=== PATIENT | female | born 1995 | race Hispanic/Latino ===

== ENCOUNTER 2017-09-08 12:10 | Emergency (ER) | payer MEDICAID, OTHER ==
[2017-09-08] MEDS ORDERED: DICYCLOMINE HCL 20 MG TAB ONE (12:39)
[2017-09-08] MEDS ORDERED: ONDANSETRON ODT 4 MG TAB ONE (12:39)
[2017-09-08 13:02] LABS: APPEARANCE,URINE CLEAR (CLEAR); BILIRUBIN,URINE NEGATIVE (NEGATIVE); COLOR,URINE YELLOW (YELLOW); GLUCOSE, URINE (UA) NEGATIVE (NEGATIVE); KETONES,URINE 15 mg/dL (NEGATIVE); LEUKOCYTE ESTERASE ,URINE SMALL (NEGATIVE); NITRATE,URINE NEGATIVE (NEGATIVE); OCCULT BLOOD,URINE TRACE-INTACT (NEGATIVE); PROTEIN,URINE NEGATIVE (NEGATIVE); UROBILINOGEN,URINE 0.2 mg/dL (0.2-1.0)
[2017-09-08 13:07] LABS: HCG,QUAL RESULT POSITIVE (NEGATIVE)
[2017-09-08 13:22] LABS: BACTERIA,URINE Rare /HPF (None Seen); RBC,URINE 0-1 /HPF (0-1); SQUAMOUS EPITHELIAL CELL,UR Few /LPF (0-2)
[2017-09-08 13:23] LABS: WBC,URINE 0-1 /HPF (0-1)
== END 2017-09-08 15:03 | disposition left against medical advice (07) ==
LOC: EDH 12:10
DX: O26.891 Other specified pregnancy related conditions, first trimester (principal); R11.2 Nausea with vomiting, unspecified; R19.7 Diarrhea, unspecified; J45.909 Unspecified asthma, uncomplicated; Z53.21 Procedure and treatment not carried out due to patient leaving prior to being seen by health care provider; Z3A.11 11 weeks gestation of pregnancy; Z88.0 Allergy status to penicillin; Z90.49 Acquired absence of other specified parts of digestive tract
CPT/HCPCS: 81001; 81025; 82270; 87046; 87177; 87205

== ENCOUNTER 2017-09-10 14:32 | Emergency (ER) | payer MEDICAID ==
[2017-09-10 15:45] LABS: BASOPHILS % (AUTO) 0.7 % (0.0-5.0); EOSINOPHILS % (AUTO) 0.6 % (0.0-8.0); HEMATOCRIT 36.9 % (36-48); LYMPHOCYTES % (AUTO) 34.2 % (21.0-51.0); MEAN CORPUSCULAR HEMOGLOBIN 32.7 pg (27.0-33.0); MEAN CORPUSCULAR HGB CONC 35.5 g/dL (32.0-36.0); MEAN CORPUSCULAR VOLUME 92.2 fL (79-99); MONOCYTES % (AUTO) 8.9 % (3.0-13.0); NEUTROPHILS % (AUTO) 55.6 % (40.0-77.0); PLATELET COUNT (AUTO) 257 K/uL (130-400); RED CELL DISTRIBUTION WIDTH 12.9 % (11.0-15.5); WHITE BLOOD COUNT (AUTO) 7.1 K/uL (4.8-10.8)
[2017-09-10] MEDS ORDERED: SODIUM CHLORIDE 0.9% 1000ML 1,000 ML IV ONE (15:52)
[2017-09-10] MEDS ORDERED: ONDANSETRON HCL 4 MG/2 ML VIAL ONE (15:52)
[2017-09-10 16:31] LABS: CREATININE 0.6 mg/dL (0.5-1.5); POTASSIUM 3.6 mmol/L (3.5-5.1)
== END 2017-09-10 16:49 | disposition home or self-care (01) ==
LOC: EDH 14:32
DX: O26.891 Other specified pregnancy related conditions, first trimester (principal); E86.0 Dehydration; J45.909 Unspecified asthma, uncomplicated; Z3A.12 12 weeks gestation of pregnancy; Z88.0 Allergy status to penicillin
CPT/HCPCS: 36415; 80048; 85025; 96361; 96374; 99284; J2405; J7030

== ENCOUNTER 2017-09-22 23:03 | Emergency (ER) | payer MEDICAID ==
[2017-09-23 00:29] LABS: APPEARANCE,URINE Cloudy (CLEAR); BILIRUBIN,URINE Negative (NEGATIVE); COLOR,URINE Yellow (YELLOW); GLUCOSE, URINE (UA) Negative (NEGATIVE); KETONES,URINE Negative (NEGATIVE); LEUKOCYTE ESTERASE ,URINE Moderate (NEGATIVE); NITRATE,URINE Negative (NEGATIVE); OCCULT BLOOD,URINE Large (NEGATIVE); PH,URINE 7.5 (5.0-8.0); PROTEIN,URINE Negative (NEGATIVE)
[2017-09-23 00:40] LABS: BACTERIA,URINE Moderate /HPF (None Seen); MUCUS,URINE Moderate LPF (None Seen); SQUAMOUS EPITHELIAL CELL,UR Moderate /LPF (0-2)
[2017-09-23 01:55] LABS: BASOPHILS % (AUTO) 0.5 % (0.0-5.0); EOSINOPHILS % (AUTO) 1.9 % (0.0-8.0); HEMATOCRIT 35.2 % (36-48); LYMPHOCYTES % (AUTO) 36.7 % (21.0-51.0); MEAN CORPUSCULAR HEMOGLOBIN 33.1 pg (27.0-33.0); MEAN CORPUSCULAR HGB CONC 35.1 g/dL (32.0-36.0); MEAN CORPUSCULAR VOLUME 94.4 fL (79-99); MONOCYTES % (AUTO) 8.3 % (3.0-13.0); NEUTROPHILS % (AUTO) 52.6 % (40.0-77.0); PLATELET COUNT (AUTO) 213 K/uL (130-400); RED BLOOD CELL COUNT(AUTO) 3.72 MIL/uL (4.00-5.50); RED CELL DISTRIBUTION WIDTH 13.4 % (11.0-15.5); WHITE BLOOD COUNT (AUTO) 7.8 K/uL (4.8-10.8)
[2017-09-23 02:13] LABS: CREATININE 0.6 mg/dL (0.5-1.5); POTASSIUM 3.8 mmol/L (3.5-5.1)
== END 2017-09-23 03:19 | disposition home or self-care (01) ==
LOC: EDH 23:03
DX: O20.0 Threatened abortion (principal); J45.909 Unspecified asthma, uncomplicated; Z3A.16 16 weeks gestation of pregnancy; Z88.0 Allergy status to penicillin
CPT/HCPCS: 36415; 76801; 80048; 81001; 84702; 85025

== ENCOUNTER 2017-09-30 07:58 | Emergency (ER) | payer MEDICAID ==
[2017-09-30 09:17] LABS: BASOPHILS % (AUTO) 0.9 % (0.0-5.0); EOSINOPHILS % (AUTO) 1.1 % (0.0-8.0); HEMATOCRIT 34.1 % (36-48); MEAN CORPUSCULAR HEMOGLOBIN 32.8 pg (27.0-33.0); MEAN CORPUSCULAR HGB CONC 35.6 g/dL (32.0-36.0); MEAN CORPUSCULAR VOLUME 92.4 fL (79-99); MONOCYTES % (AUTO) 8.7 % (3.0-13.0); NEUTROPHILS % (AUTO) 45.3 % (40.0-77.0); NUCLEATED RED BLOOD CELLS 0.1 % (0.0-0.19); PLATELET COUNT (AUTO) 269 K/uL (130-400); RED BLOOD CELL COUNT(AUTO) 3.69 MIL/uL (4.00-5.50); WHITE BLOOD COUNT (AUTO) 5.7 K/uL (4.8-10.8)
[2017-09-30 09:23] LABS: APPEARANCE,URINE Clear (CLEAR); BILIRUBIN,URINE Negative (NEGATIVE); COLOR,URINE Yellow (YELLOW); GLUCOSE, URINE (UA) Negative (NEGATIVE); KETONES,URINE Trace mg/dL (NEGATIVE); LEUKOCYTE ESTERASE ,URINE Small (NEGATIVE); NITRATE,URINE Negative (NEGATIVE); OCCULT BLOOD,URINE Large (NEGATIVE); PROTEIN,URINE Negative (NEGATIVE)
[2017-09-30 09:23] LABS: CREATININE 0.7 mg/dL (0.5-1.5); POTASSIUM 3.5 mmol/L (3.5-5.1)
[2017-09-30 09:28] LABS: INR 1.06 (0.85-1.15); PARTIAL THROMBOPLASTIN TIME 35.5 SEC (26.3-35.5); PROTHROMBIN TIME 11.1 SEC (9.6-11.6)
[2017-09-30 09:34] LABS: ALBUMIN 3.9 g/dL (3.5-5.0); BILIRUBIN,TOTAL 0.5 mg/dL (0.2-1.0); TOTAL PROTEIN, SERUM 7.5 g/dL (6.0-8.3)
[2017-09-30 09:38] LABS: BACTERIA,URINE Rare /HPF (None Seen); MUCUS,URINE Few LPF (None Seen); SQUAMOUS EPITHELIAL CELL,UR Few /LPF (0-2); WBC,URINE 0-1 /HPF (0-1)
== END 2017-09-30 10:26 | disposition home or self-care (01) ==
LOC: EDH 07:58
DX: O03.9 Complete or unspecified spontaneous abortion without complication (principal); O99.512 Diseases of the respiratory system complicating pregnancy, second trimester; J45.909 Unspecified asthma, uncomplicated; Z88.0 Allergy status to penicillin; Z3A.14 14 weeks gestation of pregnancy
CPT/HCPCS: 36415; 76805; 80053; 81001; 84702; 85025; 85610; 85730

== ENCOUNTER 2018-07-28 16:39 | Emergency (ER) | payer MEDICAID, OTHER ==
[2018-07-28 17:15] LABS: APPEARANCE,URINE CLOUDY (CLEAR); BILIRUBIN,URINE NEGATIVE (NEGATIVE); COLOR,URINE YELLOW (YELLOW); GLUCOSE, URINE (UA) NEGATIVE (NEGATIVE); KETONES,URINE NEGATIVE (NEGATIVE); LEUKOCYTE ESTERASE ,URINE LARGE (NEGATIVE); NITRATE,URINE NEGATIVE (NEGATIVE); OCCULT BLOOD,URINE SMALL (NEGATIVE); PH,URINE 7.5 (5.0-8.0); PROTEIN,URINE 30 (NEGATIVE); UROBILINOGEN,URINE 0.2 mg/dL (0.2-1.0)
[2018-07-28 17:19] LABS: HCG,QUAL RESULT NEGATIVE (NEGATIVE)
[2018-07-28 17:38] LABS: BACTERIA,URINE Many /HPF (None Seen); RBC,URINE None Seen /HPF (0-1); WBC,URINE 51-100 /HPF (0-1)
[2018-07-28] MEDS ORDERED: PHENAZOPYRIDINE HCL 200 MG TABLET ONE (17:47)
[2018-07-28] MEDS ORDERED: LIDOCAINE HCL-MPF 1% 2ML VIAL ONE (17:47)
[2018-07-28] MEDS ORDERED: CEFTRIAXONE SODIUM 1 GM ONE (17:47)
== END 2018-07-28 17:55 | disposition home or self-care (01) ==
LOC: EDH 16:39
DX: N39.0 Urinary tract infection, site not specified (principal); J45.909 Unspecified asthma, uncomplicated; Z90.89 Acquired absence of other organs; Z90.49 Acquired absence of other specified parts of digestive tract; Z72.0 Tobacco use; Z88.0 Allergy status to penicillin
CPT/HCPCS: 81001; 81025; 87088; 96372; 99283; J0696; J3490

== ENCOUNTER 2018-09-05 12:24 | Emergency (ER) | payer MEDICAID, OTHER ==
[2018-09-05 13:07] LABS: RAPID GROUP A STREP NEGATIVE (NEGATIVE)
== END 2018-09-05 13:43 | disposition home or self-care (01) ==
LOC: EDH 12:24
DX: J10.1 Influenza due to other identified influenza virus with other respiratory manifestations (principal); R50.81 Fever presenting with conditions classified elsewhere; Z90.49 Acquired absence of other specified parts of digestive tract; Z98.890 Other specified postprocedural states; Z88.0 Allergy status to penicillin
CPT/HCPCS: 71045; 87804; 87880

== ENCOUNTER 2018-12-20 10:41 | Emergency (ER) | payer OTHER ==
[2018-12-20 11:41] LABS: BASOPHILS % (AUTO) 0.5 % (0.0-5.0); EOSINOPHILS % (AUTO) 2.2 % (0.0-8.0); HEMATOCRIT 41.5 % (36-48); LYMPHOCYTES % (AUTO) 25.3 % (21.0-51.0); MEAN CORPUSCULAR HEMOGLOBIN 31.5 pg (27.0-33.0); MEAN CORPUSCULAR HGB CONC 33.8 g/dL (32.0-36.0); MEAN CORPUSCULAR VOLUME 93.4 fL (79-99); MONOCYTES % (AUTO) 11.7 % (3.0-13.0); NEUTROPHILS % (AUTO) 60.3 % (40.0-77.0); PLATELET COUNT (AUTO) 221 K/uL (130-400); RED BLOOD CELL COUNT(AUTO) 4.44 MIL/uL (4.00-5.50); RED CELL DISTRIBUTION WIDTH 12.3 % (11.0-15.5); WHITE BLOOD COUNT (AUTO) 6.9 K/uL (4.8-10.8)
[2018-12-20 11:48] LABS: CREATININE 0.6 mg/dL (0.5-1.5); POTASSIUM 3.4 mmol/L (3.5-5.1)
[2018-12-20] MEDS ORDERED: SODIUM CHLORIDE 0.9% 1000ML 1,000 ML IV ONE ×2 (11:52→14:30)
[2018-12-20 11:57] LABS: ALBUMIN 4.3 g/dL (3.5-5.0); BILIRUBIN,TOTAL 0.5 mg/dL (0.2-1.0); TOTAL PROTEIN, SERUM 7.9 g/dL (6.0-8.3)
[2018-12-20 12:07] LABS: APPEARANCE,URINE Cloudy (CLEAR); BILIRUBIN,URINE Negative (NEGATIVE); COLOR,URINE Dark Yellow (YELLOW); GLUCOSE, URINE (UA) Negative (NEGATIVE); KETONES,URINE >=160 mg/dL (NEGATIVE); LEUKOCYTE ESTERASE ,URINE Small (NEGATIVE); NITRATE,URINE Negative (NEGATIVE); OCCULT BLOOD,URINE Moderate (NEGATIVE); PH,URINE 5.5 (5.0-8.0); PROTEIN,URINE Negative (NEGATIVE)
[2018-12-20 12:26] LABS: BACTERIA,URINE Moderate /HPF (None Seen); MUCUS,URINE Many LPF (None Seen); SQUAMOUS EPITHELIAL CELL,UR Moderate /HPF (0-2)
[2018-12-20] MEDS ORDERED: MECLIZINE HCL 25 MG TABLET ONE (12:42)
[2018-12-20 12:45] LABS: HCG,QUAL RESULT NEGATIVE (NEGATIVE)
[2018-12-20] MEDS ORDERED: SODIUM CHLORIDE 0.9% 100 ML IV ONE (12:46)
[2018-12-20] MEDS ORDERED: METHYLPREDNISOLONE SOD SUCC 40MG/ML 1ML ONE (12:46)
[2018-12-20 12:58] LABS: AMPHET/METH SCREEN,URINE NEGATIVE (NEGATIVE); BARBITURATE SCREEN, URINE NEGATIVE (NEGATIVE); BENZODIAZEPINES SCREEN,URINE NEGATIVE (NEGATIVE); CANNABINOID SCREEN,URINE POSITIVE (NEGATIVE); COCAINE SCREEN,URINE NEGATIVE (NEGATIVE); OPIATE SCREEN,URINE NEGATIVE (NEGATIVE); PHENCYCLIDINE SCREEN,URINE NEGATIVE (NEGATIVE)
== END 2018-12-20 15:28 | disposition home or self-care (01) ==
LOC: EDH 10:41
DX: E86.0 Dehydration (principal); H81.10 Benign paroxysmal vertigo, unspecified ear; F19.10 Other psychoactive substance abuse, uncomplicated; J45.909 Unspecified asthma, uncomplicated; Z90.49 Acquired absence of other specified parts of digestive tract; Z90.89 Acquired absence of other organs
CPT/HCPCS: 36415; 80053; 80305; 81001; 81025; 83690; 85025; 87804 ×2; 96361; 96374; 96375; 99284; J2920; J7030 ×2

== ENCOUNTER 2019-06-07 17:43 | Emergency (ER) | payer MEDICAID ==
[2019-06-07 19:41] LABS: BASOPHILS % (AUTO) 0.4 % (0.0-5.0); EOSINOPHILS % (AUTO) 0.9 % (0.0-8.0); HEMATOCRIT 37.5 % (36-48); LYMPHOCYTES % (AUTO) 32.8 % (21.0-51.0); MEAN CORPUSCULAR HEMOGLOBIN 32.4 pg (27.0-33.0); MEAN CORPUSCULAR HGB CONC 34.3 g/dL (32.0-36.0); MEAN CORPUSCULAR VOLUME 94.3 fL (79-99); MONOCYTES % (AUTO) 8.4 % (3.0-13.0); NEUTROPHILS % (AUTO) 57.5 % (40.0-77.0); NUCLEATED RED BLOOD CELLS 0.1 % (0.0-0.19); PLATELET COUNT (AUTO) 247 K/uL (130-400); RED BLOOD CELL COUNT(AUTO) 3.98 MIL/uL (4.00-5.50); RED CELL DISTRIBUTION WIDTH 12.7 % (11.0-15.5); WHITE BLOOD COUNT (AUTO) 9.5 K/uL (4.8-10.8)
[2019-06-07 19:56] LABS: APPEARANCE,URINE Clear (CLEAR); BILIRUBIN,URINE Negative (NEGATIVE); COLOR,URINE Yellow (YELLOW); GLUCOSE, URINE (UA) Negative (NEGATIVE); KETONES,URINE 15 mg/dL (NEGATIVE); LEUKOCYTE ESTERASE ,URINE Moderate (NEGATIVE); NITRATE,URINE Negative (NEGATIVE); OCCULT BLOOD,URINE Trace (NEGATIVE); PH,URINE 5.5 (5.0-8.0); PROTEIN,URINE Negative (NEGATIVE); UROBILINOGEN,URINE 0.2 mg/dL (0.2-1.0)
[2019-06-07 20:22] LABS: BACTERIA,URINE Few /HPF (None Seen); MUCUS,URINE Few LPF (None Seen); SQUAMOUS EPITHELIAL CELL,UR Moderate /HPF (0-2)
== END 2019-06-07 20:49 | disposition home or self-care (01) ==
LOC: EDH 17:43
DX: O23.41 Unspecified infection of urinary tract in pregnancy, first trimester (principal); O99.511 Diseases of the respiratory system complicating pregnancy, first trimester; J45.909 Unspecified asthma, uncomplicated; Z3A.01 Less than 8 weeks gestation of pregnancy; Z88.0 Allergy status to penicillin; Z87.891 Personal history of nicotine dependence
CPT/HCPCS: 36415; 76817; 81001; 84702; 85025; 86900; 86901

== ENCOUNTER 2019-06-15 18:55 | Emergency (ER) | payer MEDICAID ==
[2019-06-15] MEDS ORDERED: ACETAMINOPHEN 325 MG TAB ONE (19:38)
[2019-06-15] MEDS ORDERED: DIPHENHYDRAMINE HCL 25 MG CAPSULE ONE (19:38)
== END 2019-06-15 20:20 | disposition home or self-care (01) ==
LOC: EDH 18:55
DX: J06.9 Acute upper respiratory infection, unspecified (principal); J45.909 Unspecified asthma, uncomplicated; Z88.0 Allergy status to penicillin; Z90.49 Acquired absence of other specified parts of digestive tract; Z98.890 Other specified postprocedural states
CPT/HCPCS: 87804 ×2; 99284; Q0163

== ENCOUNTER 2019-08-26 20:37 | Emergency (ER) | payer MEDICAID ==
[2019-08-26 21:28] LABS: APPEARANCE,URINE Clear (CLEAR); BILIRUBIN,URINE Negative (NEGATIVE); COLOR,URINE Dark Yellow (YELLOW); GLUCOSE, URINE (UA) Negative (NEGATIVE); KETONES,URINE Negative (NEGATIVE); LEUKOCYTE ESTERASE ,URINE Small (NEGATIVE); NITRATE,URINE Negative (NEGATIVE); OCCULT BLOOD,URINE Negative (NEGATIVE); PH,URINE 5.5 (5.0-8.0); PROTEIN,URINE Negative (NEGATIVE)
[2019-08-26 21:40] LABS: BACTERIA,URINE Moderate /HPF (None Seen); MUCUS,URINE Many LPF (None Seen); SQUAMOUS EPITHELIAL CELL,UR Moderate /HPF (0-2)
== END 2019-08-26 22:05 | disposition home or self-care (01) ==
LOC: EDH 20:37
DX: O23.42 Unspecified infection of urinary tract in pregnancy, second trimester (principal); O99.512 Diseases of the respiratory system complicating pregnancy, second trimester; J45.909 Unspecified asthma, uncomplicated; Z88.0 Allergy status to penicillin; Z90.49 Acquired absence of other specified parts of digestive tract; Z98.890 Other specified postprocedural states; Z3A.16 16 weeks gestation of pregnancy
CPT/HCPCS: 81001

== ENCOUNTER 2019-11-16 20:01 | Emergency (ER) | payer MEDICAID ==
[2019-11-16] MEDS ORDERED: SODIUM CHLORIDE 0.9% 1000ML 1,000 ML IV ONE (20:02)
[2019-11-16] MEDS ORDERED: ONDANSETRON HCL 4 MG/2 ML VIAL ONE (20:42)
[2019-11-16 20:48] LABS: BASOPHILS % (AUTO) 0.3 % (0.0-5.0); EOSINOPHILS % (AUTO) 0.8 % (0.0-8.0); HEMATOCRIT 30.5 % (36-48); LYMPHOCYTES % (AUTO) 28.1 % (21.0-51.0); MEAN CORPUSCULAR HEMOGLOBIN 31.9 pg (27.0-33.0); MEAN CORPUSCULAR HGB CONC 34.4 g/dL (32.0-36.0); MEAN CORPUSCULAR VOLUME 92.7 fL (79-99); MONOCYTES % (AUTO) 9.6 % (3.0-13.0); NEUTROPHILS % (AUTO) 60.9 % (40.0-77.0); PLATELET COUNT (AUTO) 210 K/uL (130-400); RED BLOOD CELL COUNT(AUTO) 3.29 MIL/uL (4.00-5.50); RED CELL DISTRIBUTION WIDTH 12.1 % (11.0-15.5); WHITE BLOOD COUNT (AUTO) 7.9 K/uL (4.8-10.8)
[2019-11-16] MEDS ORDERED: ACETAMINOPHEN 325 MG TAB ONE (20:49)
[2019-11-16 21:10] LABS: CREATININE 0.5 mg/dL (0.5-1.5); POTASSIUM 3.4 mmol/L (3.5-5.1)
[2019-11-16 21:14] LABS: ALBUMIN 2.8 g/dL (3.5-5.0); BILIRUBIN,TOTAL 0.2 mg/dL (0.2-1.0); MAGNESIUM 1.7 mg/dL (1.80-2.40); TOTAL PROTEIN, SERUM 6.7 g/dL (6.0-8.3)
== END 2019-11-16 22:49 | disposition home or self-care (01) ==
LOC: EDH 20:01
DX: O26.893 Other specified pregnancy related conditions, third trimester (principal); E86.0 Dehydration; R19.7 Diarrhea, unspecified; L01.00 Impetigo, unspecified; O99.513 Diseases of the respiratory system complicating pregnancy, third trimester; J45.909 Unspecified asthma, uncomplicated; Z90.49 Acquired absence of other specified parts of digestive tract; Z3A.28 28 weeks gestation of pregnancy
CPT/HCPCS: 36415; 80053; 83735; 85025; 96361; 96374; 99283; J2405; J7030

== ENCOUNTER 2020-01-30 05:35 | Inpatient (IN) | payer MEDICAID ==
[~2020-01-30] VITALS: Ht 162.6 cm; Wt 83.9 kg
[2020-01-30] MEDS ORDERED: LACTATED RINGERS 1000ML 1,000 ML IV PRN (05:38)
[2020-01-30] MEDS ORDERED: LACTATED RINGERS 500 ML 500 ML IV PRN (05:45)
[2020-01-30] MEDS ORDERED: BUTORPHANOL TARTRATE 2 MG/ML IVP PRN (05:45)
[2020-01-30] MEDS ORDERED: EPHEDRINE SULFATE 50 MG/ML AMPULE IVP PRN (05:45)
[2020-01-30] MEDS ORDERED: OXYTOCIN 10 USP UNITS/ML 20 UNIT in LACTATED RINGERS 1000ML 1,000 ML IV SCH (05:45)
[2020-01-30] MEDS ORDERED: NALOXONE HCL 0.4 MG/1 ML ML IV PRN (05:45)
[2020-01-30] MEDS ORDERED: ROPIVACAINE 0.2% 100ML VIAL 100 ML EP PRN (05:45)
[2020-01-30 07:12] LABS: HEMATOCRIT 31.5 % (36-48); MEAN CORPUSCULAR HEMOGLOBIN 32.2 pg (27.0-33.0); MEAN CORPUSCULAR HGB CONC 34.9 g/dL (32.0-36.0); MEAN CORPUSCULAR VOLUME 92.1 fL (79-99); RED BLOOD CELL COUNT(AUTO) 3.42 MIL/uL (4.00-5.50); RED CELL DISTRIBUTION WIDTH 13.1 % (11.0-15.5); WHITE BLOOD COUNT (AUTO) 7.9 K/uL (4.8-10.8)
[2020-01-30] MEDS ORDERED: OXYTOCIN-LR 20 UNITS/1000 ML 1,000 ML IV ONE ×2 (08:09→12:19)
[2020-01-30 10:50] LABS: APPEARANCE,URINE Cloudy (CLEAR); BILIRUBIN,URINE Small (NEGATIVE); COLOR,URINE Dark Yellow (YELLOW); GLUCOSE, URINE (UA) Negative (NEGATIVE); KETONES,URINE Trace mg/dL (NEGATIVE); LEUKOCYTE ESTERASE ,URINE Moderate (NEGATIVE); NITRATE,URINE Negative (NEGATIVE); OCCULT BLOOD,URINE Moderate (NEGATIVE); PH,URINE 5.5 (5.0-8.0); PROTEIN,URINE Negative (NEGATIVE)
[2020-01-30 10:58] LABS: AMPHET/METH SCREEN,URINE NEGATIVE (NEGATIVE); BARBITURATE SCREEN, URINE NEGATIVE (NEGATIVE); BENZODIAZEPINES SCREEN,URINE NEGATIVE (NEGATIVE); CANNABINOID SCREEN,URINE NEGATIVE (NEGATIVE); COCAINE SCREEN,URINE NEGATIVE (NEGATIVE); OPIATE SCREEN,URINE NEGATIVE (NEGATIVE); PHENCYCLIDINE SCREEN,URINE NEGATIVE (NEGATIVE)
[2020-01-30 11:12] LABS: BACTERIA,URINE Many /HPF (None Seen); SQUAMOUS EPITHELIAL CELL,UR Moderate /HPF (0-2)
[2020-01-30] MEDS ORDERED: ACETAMINOPHEN 325 MG TAB PO PRN (11:45)
[2020-01-30] MEDS ORDERED: LANOLIN 30GM OINTMENT TP PRN (11:45)
[2020-01-30] MEDS ORDERED: WITCH HAZEL 1 PAD TP PRN (11:45)
[2020-01-30] MEDS ORDERED: BENZOCAINE/LANOLIN/ALOE VERA 60 ML AEROSOL TP PRN (11:45)
[2020-01-30] MEDS ORDERED: ACETAMINOPHEN-CODEINE 300/30MG TAB PO PRN (11:45)
[2020-01-30] MEDS ORDERED: MEASLES/MUMPS/RUBELLA VACCINE, LIVE 0.5 ML/VIAL SQ PRN (11:45)
[2020-01-30] MEDS ORDERED: DIPH,PERTUSS(ACELL),TET VAC/PF 0.5 ML VIAL IM PRN (11:45)
[2020-01-30 13:35] VITALS: BP 123/71
[2020-01-30] MEDS ORDERED: PREN1TAB26 PO (13:40)
[2020-01-30] MEDS: IBUPROFEN 600 MG TABLET PO PRN ×2 (13:45→19:39)
--- NOTE | 2020-01-30 15:09 | NUR ---
HX of THC 1 yr ago and anxiety Sw unable to meet with pt related to covid 19 precautions. Pt states she lives with her other Briseyda Paige [phone] and pt's 4 kids 9,8,5 and NB daughter Roselia Paige. Pt states fathers of children are not involved in her or childrens' lives. Pt is unemployed, independent, has Medicaid WIC and Food stamp assistance. Pt states she has car seat for new born and basic items. 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 Pt reports good family support in place. Pt denies any hx of abuse, domestic violence, mental health issues, post depression,ideations, suicide attempts, or CPS. Pt did state that she smoked marijuana "years ago", when asked to give last time she smoked, pt said "I don't know, it was a long time ago". Pt denies need for referral or intervention at this time. Sw spoke to Caron Monroe at [facility], pt has no open case and last case was 2016. Addendum: 01/30/20 at 1519 by ALBINA LAWS Amended: Links added.
--- NOTE | 2020-01-30 15:15 | NUR ---
REPORT RECEIVED FROM SIMÓN NAVARRETE AND PATIENT CARE TRANSFERRED AT TIME. PATIENT IS STABLE AND BONDING WELL WITH . VERBALIZED DOING BOTH BREASTFEEDNG AND BOTTLE AND WAS ISSUED LANOLIN CREAM AND WAS INSTRUCTED ON USE ON BREAST.
[2020-01-30 16:18] VITALS: BP 113/77
--- NOTE | 2020-01-30 17:00 | NUR ---
PATIENT HAS PIV PATENT AND SITE WNL. BONDING WELL WITH BABY AND DENIES PAIN AT THIS TIME.
--- NOTE | 2020-01-30 18:30 | NUR ---
PATIENT RESTING, DENIES PAIN AND DENIES NEEDING ANYTHING AT THIS TIME. BABY AT BEDSIDE IN OPEN CRIB.
[2020-01-30 19:30] VITALS: BP 112/74
[2020-01-30] MEDS: DOCUSATE SODIUM 100 MG CAP PO SCH (21:13)
[2020-01-30 23:12] VITALS: BP 121/64
[2020-01-31 03:18] VITALS: BP 109/73
[2020-01-31 07:16] VITALS: BP 116/74
[2020-01-31] MEDS: DOCUSATE SODIUM 100 MG CAP PO SCH (08:08)
[2020-01-31] MEDS: IBUPROFEN 600 MG TABLET PO PRN (08:09)
[2020-01-31 09:13] LABS: HEPATITIS Bs ANTIGEN SCREEN P Negative (Negative)
[2020-01-31 11:05] VITALS: BP 103/65
--- NOTE | 2020-01-31 14:20 | NUR ---
PATIENT WAS TAKEN VIA W/C CARRYING BABY IN ARMS AND WERE BOTH DISCHARGED TO PATIENT'S MOTHER. PATIENT IS STABLE AND DENIES PAIN.
== END 2020-01-31 14:20 | disposition home or self-care (01) | DRG 560 ==
LOC: LDH 05:35 → WSH 13:12
PROVIDERS: ADMIT Obstetrics & Gynecology; ATTEND Obstetrics & Gynecology
PROC: 10E0XZZ Delivery of Products of Conception, External Approach (ICD-10-PCS; principal; 2020-01-30)
PROC: 10907ZC Drainage of Amniotic Fluid, Therapeutic from Products of Conception, Via Natural or Artificial Opening (ICD-10-PCS; 2020-01-30)
PROC: 3E0R3BZ Introduction of Anesthetic Agent into Spinal Canal, Percutaneous Approach (ICD-10-PCS; 2020-01-30)
PROC: 00HU33Z Insertion of Infusion Device into Spinal Canal, Percutaneous Approach (ICD-10-PCS; 2020-01-30)
PROC: 3E0234Z Introduction of Serum, Toxoid and Vaccine into Muscle, Percutaneous Approach (ICD-10-PCS; 2020-01-30)
PROC: 3E0134Z Introduction of Serum, Toxoid and Vaccine into Subcutaneous Tissue, Percutaneous Approach (ICD-10-PCS; 2020-01-30)
DX: O69.81X0 Labor and delivery complicated by cord around neck, without compression, not applicable or unspecified (principal); O24.12 Pre-existing type 2 diabetes mellitus, in childbirth; O99.52 Diseases of the respiratory system complicating childbirth; Z3A.39 39 weeks gestation of pregnancy; Z37.0 Single live birth; E11.9 Type 2 diabetes mellitus without complications; J45.909 Unspecified asthma, uncomplicated; Z23 Encounter for immunization
CPT/HCPCS: 36415; 80305; 81001; 85027; 86592; 86850; 86900; 86901; 87088; 87340; A4314; G0378; J2590; J2795

== ENCOUNTER 2020-12-05 11:14 | Emergency (ER) | payer MEDICAID ==
[~2020-12-05 11:14] MED LIST: PREN1TAB26 PO
[2020-12-05] MEDS ORDERED: IBUPROFEN 600 MG TABLET ONE (12:15)
== END 2020-12-05 12:30 | disposition home or self-care (01) ==
LOC: EDH 11:14
DX: S20.219A Contusion of unspecified front wall of thorax, initial encounter (principal); J45.909 Unspecified asthma, uncomplicated; Z90.49 Acquired absence of other specified parts of digestive tract; Z88.0 Allergy status to penicillin; X58.XXXA Exposure to other specified factors, initial encounter; Y93.89 Activity, other specified; Y92.89 Other specified places as the place of occurrence of the external cause; Y99.8 Other external cause status
CPT/HCPCS: 71111

== ENCOUNTER 2021-08-27 16:02 | Emergency (ER) | payer BC, MEDICAID ==
[~2021-08-27] VITALS: Ht 162.6 cm; Wt 63.5 kg
[2021-08-27] MEDS ORDERED: IBUPROFEN 800 MG TAB PO ONE (16:30)
[2021-08-27] MEDS ORDERED: CLINDAMYCIN 150 MG CAP ONE (16:54)
[2021-08-27] MEDS ORDERED: TETANUS/DIPHTHERIA TOXOID [ADULT] 0.5 ML VIAL IM ONE ×2 (16:55→17:00)
[2021-08-27] MEDS ORDERED: CLIN-141 PO (16:55)
[2021-08-27] MEDS ORDERED: IBUP-1552 PO (16:55)
[2021-08-27] MEDS ORDERED: CLINDAMYCIN 150 MG CAP PO ONE (17:00)
[2021-08-27 17:39] VITALS: BP 128/68
== END 2021-08-27 17:38 | disposition home or self-care (01) ==
LOC: EDH 16:25
DX: S61.431A Puncture wound without foreign body of right hand, initial encounter (principal); J45.909 Unspecified asthma, uncomplicated; Z90.49 Acquired absence of other specified parts of digestive tract; Z90.89 Acquired absence of other organs; Z88.0 Allergy status to penicillin; Z79.899 Other long term (current) drug therapy; W55.01XA Bitten by cat, initial encounter; Y93.89 Activity, other specified; Y92.89 Other specified places as the place of occurrence of the external cause; Y99.8 Other external cause status
CPT/HCPCS: 73130; 90471; 90714

== ENCOUNTER 2021-09-29 07:39 | Emergency (ER) | payer BC, MEDICAID ==
[~2021-09-29] VITALS: Ht 162.6 cm; Wt 75.7 kg
[~2021-09-29 07:39] MED LIST changes: +CLIN-141 PO; +IBUP-1552 PO
[2021-09-29 07:40] VITALS: BP 137/86
[2021-09-29] MEDS ORDERED: IBUPROFEN 600 MG TABLET PO ONE (08:00)
[2021-09-29] MEDS ORDERED: IBUPROFEN 600 MG TABLET ONE (08:03)
[2021-09-29] MEDS ORDERED: NAPR-1196 PO (08:29)
== END 2021-09-29 08:41 | disposition home or self-care (01) ==
LOC: EDH 07:39
DX: S93.402A Sprain of unspecified ligament of left ankle, initial encounter (principal); M25.561 Pain in right knee; J45.909 Unspecified asthma, uncomplicated; Z79.1 Long term (current) use of non-steroidal anti-inflammatories (NSAID); Z88.0 Allergy status to penicillin; Z90.49 Acquired absence of other specified parts of digestive tract; X50.1XXA Overexertion from prolonged static or awkward postures, initial encounter; Y93.89 Activity, other specified; Y92.89 Other specified places as the place of occurrence of the external cause; Y99.8 Other external cause status
CPT/HCPCS: 73610

== ENCOUNTER 2021-12-07 22:06 | Emergency (ER) | payer MEDICAID ==
[~2021-12-07] VITALS: Ht 162.6 cm; Wt 72.6 kg
[~2021-12-07 22:06] MED LIST changes: -CLIN-141 PO; -IBUP-1552 PO; +METR-172 PO; +NAPR-1196 PO
[2021-12-07 22:56] LABS: BASOPHILS % (AUTO) 0.3 % (0.0-5.0); EOSINOPHILS % (AUTO) 0.7 % (0.0-8.0); HEMATOCRIT 37.2 % (36-48); LYMPHOCYTES % (AUTO) 31.8 % (21.0-51.0); MEAN CORPUSCULAR HEMOGLOBIN 30.2 pg (27.0-33.0); MEAN CORPUSCULAR HGB CONC 33.1 g/dL (32.0-36.0); MEAN CORPUSCULAR VOLUME 91.4 fL (79-99); MONOCYTES % (AUTO) 7.2 % (3.0-13.0); NEUTROPHILS % (AUTO) 59.5 % (40.0-77.0); PLATELET COUNT (AUTO) 269 K/uL (130-400); RED BLOOD CELL COUNT(AUTO) 4.07 MIL/uL (4.00-5.50); WHITE BLOOD COUNT (AUTO) 10.3 K/uL (4.8-10.8)
[2021-12-07 23:07] LABS: APPEARANCE,URINE Clear (CLEAR); BILIRUBIN,URINE Negative (NEGATIVE); COLOR,URINE Yellow (YELLOW); GLUCOSE, URINE (UA) Negative (NEGATIVE); KETONES,URINE Negative (NEGATIVE); LEUKOCYTE ESTERASE ,URINE Trace (NEGATIVE); NITRATE,URINE Negative (NEGATIVE); OCCULT BLOOD,URINE Negative (NEGATIVE); PH,URINE 6.5 (5.0-8.0); PROTEIN,URINE Negative (NEGATIVE); UROBILINOGEN,URINE 0.2 mg/dL (0.2-1.0)
[2021-12-07 23:10] LABS: CREATININE 0.8 mg/dL (0.5-1.5); POTASSIUM 3.5 mmol/L (3.5-5.1)
[2021-12-07 23:14] LABS: ALBUMIN 3.8 g/dL (3.5-5.0); BILIRUBIN,TOTAL 0.2 mg/dL (0.2-1.0); TOTAL PROTEIN, SERUM 7.4 g/dL (6.0-8.3)
[2021-12-07 23:16] LABS: HCG,QUAL RESULT NEGATIVE (NEGATIVE)
[2021-12-07 23:23] LABS: BACTERIA,URINE None Seen /HPF (None Seen); SQUAMOUS EPITHELIAL CELL,UR Few /HPF (0-2)
[2021-12-08 00:28] VITALS: BP 126/85
== END 2021-12-08 01:00 | disposition home or self-care (01) ==
LOC: EDH 22:06
DX: R10.31 Right lower quadrant pain (principal); J45.909 Unspecified asthma, uncomplicated; Z88.0 Allergy status to penicillin; Z79.899 Other long term (current) drug therapy; Z90.89 Acquired absence of other organs; Z90.49 Acquired absence of other specified parts of digestive tract
CPT/HCPCS: 36415; 74176; 80053; 81001; 81025; 83690; 85025

== ENCOUNTER 2022-02-22 10:46 | Emergency (ER) | payer MEDICAID ==
[~2022-02-22] VITALS: Ht 162.6 cm; Wt 72.6 kg
[2022-02-22] MEDS ORDERED: ONDANSETRON 4MG INJ IVP STA (11:15)
[2022-02-22 11:25] LABS: HEMATOCRIT 37.1 % (36-48); MEAN CORPUSCULAR HEMOGLOBIN 31.2 pg (27.0-33.0); MEAN CORPUSCULAR HGB CONC 34.8 g/dL (32.0-36.0); MEAN CORPUSCULAR VOLUME 89.6 fL (79-99); RED BLOOD CELL COUNT(AUTO) 4.14 MIL/uL (4.00-5.50); RED CELL DISTRIBUTION WIDTH 13.1 % (11.0-15.5)
[2022-02-22 11:27] LABS: APPEARANCE,URINE SL CLOUDY (CLEAR); BILIRUBIN,URINE MODERATE (NEGATIVE); COLOR,URINE YELLOW (YELLOW); GLUCOSE, URINE (UA) NEGATIVE (NEGATIVE); KETONES,URINE >=80 mg/dL (NEGATIVE); LEUKOCYTE ESTERASE ,URINE MODERATE (NEGATIVE); NITRATE,URINE NEGATIVE (NEGATIVE); OCCULT BLOOD,URINE SMALL (NEGATIVE); PROTEIN,URINE NEGATIVE (NEGATIVE)
[2022-02-22] MEDS ORDERED: 0.9%NACL 1000ML 1,000 ML IV ONE (11:30)
[2022-02-22 11:36] LABS: CREATININE 0.6 mg/dL (0.5-1.5); POTASSIUM 3.2 mmol/L (3.5-5.1)
[2022-02-22 11:41] LABS: ALBUMIN 4.3 g/dL (3.5-5.0); TOTAL PROTEIN, SERUM 8.3 g/dL (6.0-8.3)
[2022-02-22 11:44] LABS: BACTERIA,URINE Few /HPF (None Seen); WBC,URINE 0-1 /HPF (0-1)
[2022-02-22] MEDS ORDERED: POTASSIUM BICARB/CIT AC 25 MEQ TABLET.EFF PO STA (11:50)
[2022-02-22] MEDS ORDERED: NITR100C4 PO (12:05)
[2022-02-22 12:07] VITALS: BP 123/74
== END 2022-02-22 13:07 | disposition home or self-care (01) ==
LOC: EDH 10:46
DX: O98.511 Other viral diseases complicating pregnancy, first trimester (principal); U07.1 COVID-19; O23.41 Unspecified infection of urinary tract in pregnancy, first trimester; N39.0 Urinary tract infection, site not specified; J45.909 Unspecified asthma, uncomplicated; Z79.1 Long term (current) use of non-steroidal anti-inflammatories (NSAID); Z88.0 Allergy status to penicillin; Z90.49 Acquired absence of other specified parts of digestive tract; Z3A.01 Less than 8 weeks gestation of pregnancy
CPT/HCPCS: 99283; 96374; 87635; 96361; 80053; 85027; 87088; 81001; 81025; 36415; C9803; J7030; J2405

== ENCOUNTER 2023-11-23 11:17 | Emergency (ER) | payer MEDICAID ==
[~2023-11-23] VITALS: Ht 162.6 cm; Wt 74.8 kg
[~2023-11-23 11:17] MED LIST changes: +NITR100C4 PO
[2023-11-23 11:23] VITALS: BP 132/78; PULSE 94; RESP 14
[2023-11-23 12:04] LABS: APPEARANCE,URINE TURBID (CLEAR); BILIRUBIN,URINE NEGATIVE (NEGATIVE); COLOR,URINE YELLOW (YELLOW); GLUCOSE, URINE (UA) NEGATIVE (NEGATIVE); KETONES,URINE NEGATIVE (NEGATIVE); LEUKOCYTE ESTERASE ,URINE 500 Leu/uL (NEGATIVE); NITRATE,URINE 2+ (NEGATIVE); OCCULT BLOOD,URINE MODERATE (NEGATIVE); PROTEIN,URINE 70 mg/dL (NEGATIVE); UROBILINOGEN,URINE 0.2 mg/dL (0.2-1.0)
[2023-11-23 12:05] LABS: ADD UA MICROSCOPIC YES
[2023-11-23 12:10] LABS: BACTERIA,URINE MOD /HPF (None Seen); MUCUS,URINE RARE LPF (None Seen); RBC,URINE 26-50 /HPF (0-1); SQUAMOUS EPITHELIAL CELL,UR MOD /HPF (0-2); TRANSITIONAL EPI CELLS,URINE FEW /HPF (None Seen); WBC CLUMP MOD /HPF (0-1); WBC,URINE TNTC /HPF (0-1)
[2023-11-23] MEDS ORDERED: PHEN-847 PO (12:12)
[2023-11-23] MEDS ORDERED: NITR100C PO (12:12)
[2023-11-23] MEDS: CEFTRIAXONE 1G VIAL IM ONE (12:19)
[2023-11-23] MEDS: PHENAZOPYRIDINE HCL 200 MG TABLET PO ONE (12:19)
[2023-11-23] MEDS: ACETAMINOPHEN 500 MG TABLET PO ONE (12:20)
[2023-11-23] MEDS: LIDOCAINE HCL 1% 20 ML VIAL ONE (12:21)
== END 2023-11-23 12:42 | disposition home or self-care (01) ==
LOC: EDH 11:17
DX: O23.42 Unspecified infection of urinary tract in pregnancy, second trimester (principal); N39.0 Urinary tract infection, site not specified; O99.512 Diseases of the respiratory system complicating pregnancy, second trimester; J45.909 Unspecified asthma, uncomplicated; Z88.0 Allergy status to penicillin; Z90.49 Acquired absence of other specified parts of digestive tract; Z3A.24 24 weeks gestation of pregnancy
CPT/HCPCS: 99283; 87077; 87088; 87186; 81001; 96372; J0696

== ENCOUNTER 2024-08-23 21:16 | Emergency (ER) | payer MEDICAID ==
[~2024-08-23] VITALS: Ht 162.6 cm; Wt 65.8 kg
[2024-08-23] MEDS: hydrOXYzine 50MG VIAL 50 MG/ML VIAL IM ONE
[~2024-08-23 21:16] MED LIST changes: +NITR100C PO; +PHEN-847 PO
--- NOTE | 2024-08-23 21:18 | NUR ---
UA CUP PROVIDED
[2024-08-23 22:57] LABS: BILIRUBIN,URINE NEGATIVE (NEGATIVE); COLOR,URINE YELLOW (YELLOW); GLUCOSE, URINE (UA) NEGATIVE (NEGATIVE); KETONES,URINE 40 mg/dL (NEGATIVE); LEUKOCYTE ESTERASE ,URINE 500 Leu/uL (NEGATIVE); NITRATE,URINE NEGATIVE (NEGATIVE); OCCULT BLOOD,URINE SMALL (NEGATIVE); PH,URINE 5.5 (5.0-8.0); PROTEIN,URINE 100 mg/dL (NEGATIVE); UROBILINOGEN,URINE 0.2 mg/dL (0.2-1.0)
[2024-08-23 22:59] LABS: ADD UA MICROSCOPIC YES; APPEARANCE,URINE CLOUDY (CLEAR)
[2024-08-23 23:02] LABS: HCG,QUALITATIVE URINE NEGATIVE (NEGATIVE)
[2024-08-23 23:04] LABS: BACTERIA,URINE RARE /HPF (None Seen); MUCUS,URINE FEW LPF (None Seen); OTHER CASTS, URINE 10 /LPF (None Seen); RBC,URINE 51-100 /HPF (0-1); SQUAMOUS EPITHELIAL CELL,UR MANY /HPF (0-2); WBC,URINE TNTC /HPF (0-1)
[2024-08-23 23:19] LABS: BASOPHILS # (AUTO) 0.04 K/uL (0.00-0.20); BASOPHILS % (AUTO) 0.5 % (0.0-5.0); EOSINOPHILS # (AUTO) 0.03 K/uL (0.00-0.70); EOSINOPHILS % (AUTO) 0.4 % (0.0-8.0); HEMATOCRIT 41.1 % (36-48); IMMATURE GRANULOCYTE ABSOLUTE 0.01 K/uL (0-1); LYMPHOCYTES # (AUTO) 2.7 K/uL (1.0-4.8); LYMPHOCYTES % (AUTO) 36.6 % (21.0-51.0); MEAN CORPUSCULAR HEMOGLOBIN 30.3 pg (27.0-33.0); MEAN CORPUSCULAR HGB CONC 34.1 g/dL (32.0-36.0); MONOCYTES # (AUTO) 0.6 K/uL (0.1-1.0); MONOCYTES % (AUTO) 8.2 % (3.0-13.0); NEUTROPHILS % (AUTO) 54.2 % (40.0-77.0); PLATELET COUNT (AUTO) 269 K/uL (130-400); RED BLOOD CELL COUNT(AUTO) 4.62 MIL/uL (4.00-5.50); RED CELL DISTRIBUTION WIDTH 13.4 % (11.0-15.5); WHITE BLOOD COUNT (AUTO) 7.4 K/uL (4.8-10.8)
[2024-08-23 23:27] LABS: CREATININE 0.7 mg/dL (0.5-1.0); POTASSIUM 3.7 mmol/L (3.5-5.1)
[2024-08-23 23:40] VITALS: BP 128/88; PULSE 66; RESP 20; TEMP 98.7; O2SAT 10
[2024-08-23] MEDS ORDERED: SULF1TAB42 PO (23:49)
--- NOTE | 2024-08-23 23:52 | ERN ---
General Chief Complaint: Multiple Complaints Stated Complaint: BURNING URINATION, ASTHMA Time Seen by MD: 21:45 Time Seen by Midlevel: 21:45 Source: patient History of Present Illness Initial Comments Patient is a 29-year-old female presenting to the emergency department with multiple complaints. Her primary concern is that she was having dysuria for the last two weeks. She does report a recent right knee surgery and has been taking pain medications for it however over the last couple of days she stopped taking the medication which worsened the dysuria. She also reports a history of asthma and has been having chest pain and shortness for breath for the last two days. She states this might be her anxiety but wanted further evaluation. Denies any other concerns at this time. Allergies: Coded Allergies: Penicillins (Unverified Allergy, Unknown, 12/20/18) Home Meds Active Scripts Sulfamethoxazole/Trimethoprim (Bactrim Ds Tablet) 800 Mg-160 Mg Tablet, 1 TAB PO BID for 7 Days, #14 TAB 0 Refills Prov:THOMAS MURPHY 08/23/24 Phenazopyridine HCl (Pyridium) 200 Mg Tab, 200 MG PO TIDPC for 5 Days, #15 TAB TAKE WITH FOOD TO PREVENT STOMACH UPSET. Prov:NII SHUKLA NP 11/23/23 Nitrofurantoin Macrocrystal (Nitrofurantoin) 100 Mg Capsule, 100 MG PO BID for 7 Days, #14 CAP Prov:NII SHUKLA NP 11/23/23 Nitrofurantoin Monohyd/M-Cryst (Macrobid 100 mg Capsule) 100 Mg Capsule, 100 MG PO BID for 7 Days, #14 CAP Prov:LUI BYRD MD 02/22/22 Metronidazole (Metronidazole) 500 Mg Tablet, 500 MG PO TID for 5 Days, #15 TAB Prov:HADLEY MONTILLA NP 12/04/21 Naproxen (Naproxen) 250 Mg Tablet, 250 MG PO BID for 7 Days, #14 TAB Prov:LUI BYRD MD 09/29/21 Reported Medications Vit/Iron Fumarate/FA ( Vitamins Tablet) 1 Each Tablet, 1 EACH PO DAILY, TAB 01/30/20 Past Medical History Past Medical History: Anxiety, Asthma, UTI Past Surgical History: Tonsillectomy, Cholecystectomy Surgical History Other: JAW, RT LEG Family History Family History: DM, HTN Social History Social History: Negative Female( History) LMP: Jul 30, 2024 : 7 Para: 6 Aborts: 1 ROS Dictation CONSTITUTIONAL: Negative except for HPI HEAD/FACE: Negative except for HPI EENT: Negative except for HPI RESPIRATORY: Negative except for HPI GASTROINTESTINAL/ABDOMINAL: Negative except for HPI GENITOURINARY: Negative except for HPI MUSCULOSKELETAL: Negative except for HPI INTEGUMENTARY: Negative except for HPI NEUROLOGICAL/PSYCH: Negative except for HPI HEMATOLOGIC/LYMPHATIC: Negative except for HPI All Systems Negative, Except as noted above. 13 point review of systems assessed and all negative except for above. Physical Exam Physical Exam Dictation Vital Signs reviewed General Appearance: Alert, oriented x 3, no acute distress, well developed, nourished. Head and Face: non-traumatic. Eyes: PERRL, pink conjunctivas, eyelid no trauma, anterior chamber with arcus senilis. Ears: Pinnas intact and no signs of trauma or erythema ear canals clear and no discharge TM no erythema Nose: No discharge, no bleeding. Oropharynx: Mouth normal, tongue pink, pharynx clear,no erythema, tonsils no exudates, no abscesses noted, mucous membrane moist Neck: Supple, non-tender, no thyromegaly, no masses, no JVD, no bruits Breast:Deferred Chest:No tenderness, no crepitus, no paradoxical movement, no retractions Lungs:Clear, well-ventilated, symmetric, no rales, no wheezing, no rhonchi, no stridor, good breath sounds bilaterally Heart: Regular rate, regular rhythm, no murmur, no gallops Vascular: no peripheral edema, Abdomen: Soft, positive bowel sounds, nondistended, no guarding, nontender, no rebound, no masses no hepatomegaly, no splenomegaly, no Love's sign, no hernias. Rectal: Deferred Genital: Deferred Neurological: Normal speech, motor function intact, sensory function intact Musculoskeletal: Neck nontender, full range of motion, back nontender, full range of motion, Extremities: nontender, full range of motion Skin: Color pink, dry, no turgor, no rash, no lacerations, no abrasions, no contusions. Lymphatic: Deferred Results Laboratory and Microbiology Lab and Micro Result Laboratory Tests Test 08/23/24 22:39 08/23/24 23:13 Urine Color YELLOW (YELLOW) Urine Appearance CLOUDY (CLEAR) H Urine pH 5.5 (5.0-8.0) Urine Specific [place] 1.023 (1.001-1.031) Urine Protein 100 mg/dL (NEGATIVE) H Urine Glucose (UA) NEGATIVE mg/dL (NEGATIVE) Urine Ketones 40 mg/dL (NEGATIVE) H Urine Occult Blood SMALL (NEGATIVE) H Urine Nitrate NEGATIVE (NEGATIVE) Urine Bilirubin NEGATIVE mg/dL (NEGATIVE) Urine Urobilinogen 0.2 mg/dL (0.2-1.0) Urine Leukocyte Esterase 500 Saad/uL (NEGATIVE) H Urine RBC 51-100 /HPF (0-1) H Urine WBC TNTC /HPF (0-1) H Urine Squamous Epithelial Cells MANY /HPF (0-2) Urine Bacteria RARE /HPF (None Seen) Urine Other Casts 10 /LPF (None Seen) Urine HCG, Qualitative NEGATIVE (NEGATIVE) White Blood Count 7.4 K/uL (4.8-10.8) Red Blood Count 4.62 MIL/uL (4.00-5.50) Hemoglobin 14.0 g/dL (12.0-16.0) Hematocrit 41.1 % (36-48) Mean Corpuscular Volume 89.0 fL (79-99) Mean Corpuscular Hemoglobin 30.3 pg (27.0-33.0) Mean Corpuscular Hemoglobin Concent 34.1 g/dL (32.0-36.0) Red Cell Distribution Width 13.4 % (11.0-15.5) Platelet Count 269 K/uL (130-400) Mean Platelet Volume 11.1 fL (7.5-10.5) H Immature Granulocyte % (Auto) 0.1 % (0-1) Neutrophils (%) (Auto) 54.2 % (40.0-77.0) Lymphocytes (%) (Auto) 36.6 % (21.0-51.0) Monocytes (%) (Auto) 8.2 % (3.0-13.0) Eosinophils (%) (Auto) 0.4 % (0.0-8.0) Basophils (%) (Auto) 0.5 % (0.0-5.0) Neutrophils # (Auto) 4.0 K/uL (1.8-7.7) Lymphocytes # (Auto) 2.7 K/uL (1.0-4.8) Monocytes # (Auto) 0.6 K/uL (0.1-1.0) Eosinophils # (Auto) 0.03 K/uL (0.00-0.70) Basophils # (Auto) 0.04 K/uL (0.00-0.20) Absolute Immature Granulocyte (auto 0.01 K/uL (0-1) Nucleated Red Blood Cells 0.0 % (0.0-0.19) D-Dimer Quantitative (PE/DVT) 375 ng/mL (0-500) Sodium Level 139 mmol/L (136-145) Potassium Level 3.7 mmol/L (3.5-5.1) Chloride Level 103 mmol/L (101-111) Carbon Dioxide Level 23 mmol/L (21-32) Blood Urea Nitrogen 4 mg/dL (7-18) L Creatinine 0.7 mg/dL (0.5-1.0) Glomerular Filtration Rate Calc 119 mL/min (>90) Random Glucose 94 mg/dL (70-105) Total Calcium 9.7 mg/dL (8.5-10.1) Troponin I High Sensitivity 5 ng/L (4-50) Labs Reviewed?: Yes MDM MDM: Differential diagnosis: Urinary tract infection, pyelonephritis, PE There are no social concerns with this patient. Prescription drug management Prescriptions will include: Bactrim Medical management and examination interpretation discussions were had by me with other qualified healthcare professionals as indicated for the patient's care. ED Course Orders Procedure Category Date Status Time Urinalysis Profile LAB 08/23/24 Complete 21:48 ,Urine Test LAB 08/23/24 Complete 21:48 Culture Urine KULWINDER 08/23/24 In Process 22:59 Cbc With Differential LAB 08/23/24 Complete 23:06 Basic Metabolic Panel LAB 08/23/24 Complete 23:06 Troponin I High LAB 08/23/24 Complete Sensitivity 23:06 D-Dimer LAB 08/23/24 Complete 23:06 Sulfamethox-Tmp Ds PHA 08/24/24 Complete 800/160 Tab (Bactrim 00:00 Hydroxyzine 50mg Vial PHA 08/23/24 Complete (Atarax 50mg Inj) 00:00 Sulfamethox-Tmp Ds PHA 08/24/24 Complete 800/160 Tab (Bactrim 00:00 Hydroxyzine 25mg Tab PHA 08/24/24 Complete (Atarax 25mg Tab) 00:30 Current Medications Medications (Trade) Dose Ordered Sig/Matthias Route PRN Reason Start Time Stop Time Status Last Admin Dose Admin Hydroxyzine HCl (ATArax 25MG TAB) 25 mg ONCE ONCE PO 08/24/24 00:30 08/24/24 00:09 DC 08/24/24 00:07 Hydroxyzine HCl (ATArax 50MG INJ) 25 mg ONCE ONCE IM 08/23/24 00:00 08/23/24 23:52 DC Trimethoprim/ Sulfamethoxazole (BactRIM DS) 1 tab ONCE PO 08/24/24 00:00 08/23/24 23:52 DC Trimethoprim/ Sulfamethoxazole (BactRIM DS) 1 tab ONCE ONCE PO 08/24/24 00:00 08/24/24 00:01 DC 08/23/24 23:56 Vital Signs Date Time Temp Pulse Resp B/P (MAP) Pulse Ox O2 Delivery O2 Flow Rate FiO2 08/23/24 23:40 98.8 66 20 128/88 10 Room Air* 0 21 08/23/24 21:17 99.0 107 20 124/78 100 Room Air DX & DISP Disposition: Discharge Departure Impression: Primary Impression: UTI (urinary tract infection) Condition: Stable Scripts Sulfamethoxazole/Trimethoprim (Bactrim Ds Tablet) 800 Mg-160 Mg Tablet 1 TAB PO BID for 7 Days, #14 TAB 0 Refills Prov: THOMAS MURPHY 08/23/24 Additional Instructions: Your blood work today is stable. Your D-dimer is negative. This is a test to check if you have a blood clot. Your urinalysis is consistent with infection. I have given you a prescription for oral antibiotics for outpatient management. Referrals: SELF,REFERRAL (PCP) Time of Disposition: 23:49 I have reviewed the case, and I agree with, Diagnosis and Plan I performed the substantive portion of the visit. I have reviewed and personally made and approve the management plan that is documented in the note by myself or the MARIANNA. I acknowledge for responsibility for the patient's management plan. THOMAS MURPHY Aug 23, 2024 23:52
[2024-08-23] MEDS: sulfaMETHOX-TMP DS 800/160 TAB PO ONE (23:56)
[2024-08-24] MEDS ORDERED: sulfaMETHOX-TMP DS 800/160 TAB PO SCH
[2024-08-24] MEDS: hydrOXYzine 25 MG TABLET PO ONE (00:07)
== END 2024-08-24 00:09 | disposition home or self-care (01) ==
LOC: EDH 21:16
DX: N39.0 Urinary tract infection, site not specified (principal); F41.9 Anxiety disorder, unspecified; J45.909 Unspecified asthma, uncomplicated; Z88.0 Allergy status to penicillin; Z90.49 Acquired absence of other specified parts of digestive tract; Z90.89 Acquired absence of other organs
CPT/HCPCS: 36415; 80048; 81001; 81025; 84484; 85025; 85378; 87086; 99283